=== PATIENT | male | born 1975 | race Caucasian/White ===

== ENCOUNTER 2016-08-30 10:03 | Day surgery (SDC) | payer OTHER ==
[2016-08-29 14:23] VITALS: BMI 41.8
[2016-08-30] MEDS ORDERED: PROPOFOL 20 ML ONE ×2 (12:55→13:12)
[2016-08-30] MEDS ORDERED: MIDAZOLAM HCL 2 MG/2 ML SINGLE DOSE VIAL ONE ×2 (12:55)
[2016-08-30] MEDS ORDERED: LIDOCAINE HCL/PF 2% SDV 5ML VIAL ONE (13:06)
[2016-08-30] MEDS ORDERED: ceFAZolin SODIUM 1 GM VIAL ONE (13:16)
[2016-08-30] MEDS ORDERED: ONDANSETRON 4 MG/2 ML VIAL ONE (13:21)
[2016-08-30] MEDS ORDERED: DEXAMETHASONE SOD PHOSPHATE 4 MG/1 ML VIAL ONE (13:21)
[2016-08-30] MEDS ORDERED: KETOROLAC TROMETHAMINE 30 MG/1 ML VIAL ONE (13:52)
[2016-08-30] MEDS ORDERED: PROMETHAZINE HCL 25 MG/1 ML VIAL IVPUSH PRN (13:59)
[2016-08-30] MEDS ORDERED: oxyCODONE HCL 5 MG TABLET PO PRN (13:59)
[2016-08-30] MEDS ORDERED: LACTATED RINGERS SOLUTION 1,000 ML IV SCH (14:00)
--- NOTE | 2016-08-30 14:42 | OP ---
DATE OF OPERATION: 08/30/2016 PREOPERATIVE DIAGNOSIS: Right knee medial meniscal tear. 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 SURGEON: Jeffrey Galindo MD ANESTHESIA: General. POSTOPERATIVE CONDITION: Stable. COMPLICATIONS: None. INDICATIONS: This is a pleasant gentleman who had been suffering from increasing medial knee pain. He is failing to improve with rest and antiinflammatories. Treatment options including nonoperative versus operative management were discussed. Operative risks were reviewed in detail, including bleeding, infection, neurovascular injury, need for further surgery, postoperative pain and stiffness, progression of osteoarthritis. We discussed medical risks such as heart attack, stroke, DVT, PE, and . The patient voiced understanding and elected to proceed. PROCEDURE: The patient was brought to the operating room where general anesthesia was administered. The right lower extremity was then prepped and draped in the usual sterile fashion. A preoperative dose of antibiotics was given and the usual timeout procedure was performed. At this point, the portal sites were marked out and then injected subcutaneously with 0.25% Marcaine. An 11 blade was used to create the lateral portal. The was now passed into the knee. Examination of the patellofemoral joint demonstrated Outerbridge grade 3/4 changes in the patellar surface. The trochlea had some mild . The arthroscope was then passed down to the notch where the ACL and PCL were visualized to be intact. The arthroscope was now passed into the medial compartment. Here, some superficial fraying was noted of the femoral cartilage. A medial portal was established under spinal needle localization. The medial meniscus was now probed. The superior surface of the meniscus was unremarkable. On the inferior surface in the posterior horn, there was a significant tear noted. Utilizing a combination of meniscal biters and shaver, this was debrided down to a stable base. The arthroscope was now passed back into the notch and then across into the lateral compartment. Here, again there was noted some superficial fraying of the cartilage but no meniscal lesion. The meniscus was probed and found to be stable. At this point, the arthroscope was passed back into the patellofemoral joint. Some of the loose chondral tissue was debrided gently. At this point, the excess fluid was withdrawn from the knee. The portals were sutured using 3-0 nylon. Sterile dressings were placed. The patient was extubated and transferred to the recovery room in stable condition. Jaquan BOTELLO/[id number]
[2016-08-30] MEDS ORDERED: ACETAMINOPHEN INJECTION 100 ML IVPB ONE (14:45)
[2016-08-30] MEDS ORDERED: ACETAMINOPHEN 1000 MG/100 ML VIAL (NON FORMULARY) IVPB ONE (14:56)
[2016-08-30 16:46] VITALS: PULSE 52; TEMP 97.8
[2016-08-30 16:49] VITALS: BP 110/67
== END 2016-08-30 16:20 | disposition home or self-care (01) ==
LOC: FASU 10:03
PROVIDERS: ATTEND Orthopaedic Surgery Sports Medicine
PROC: 0SBC4ZZ Excision of Right Knee Joint, Percutaneous Endoscopic Approach (ICD-10-PCS; principal; 2016-08-30 13:26)
DX: S83.241A Other tear of medial meniscus, current injury, right knee, initial encounter (principal); X58.XXXA Exposure to other specified factors, initial encounter; Y93.9 Activity, unspecified; Y92.9 Unspecified place or not applicable
CPT/HCPCS: 94760

== ENCOUNTER 2019-12-07 20:28 | Emergency (ER) | payer OTHER ==
--- NOTE | 2019-12-07 20:36 | PDOC ---
History of Present Illness - General Chief Complaint: Pain Stated Complaint: pain post tooth extraction Time Seen by Provider: 12/07/19 20:35 - History of Present Illness Initial Comments: This 44-year-old man, otherwise healthy, presents with 3-day history of pain in the area of tooth extraction (right upper first molar). Patient states that the tooth was extracted in early September of this year but 2 additional procedures were required to remove retained portions of the tooth since then. He states that 3 days ago he began to have pain in the area with pain being progressive over the last day. Tonight, he had pulsatile severe pain. No fever/chills, difficulty swallowing or facial swelling reported. Past History - Medical History Allergies/Adverse Reactions: Allergies Allergy/AdvReac Type Severity Reaction Status Date / Time No Known Drug Allergies Allergy Verified 12/07/19 20:30 Home Medications: Ambulatory Orders Alprazolam [Xanax] 1 mg PO PRN PRN 08/30/16 Amoxicillin - [Amoxicillin 500mg Capsule -] 500 mg PO TID #21 capsule 12/07/19 Asthma: Yes (SEASONAL ONLY) Cancer: No Cardiac Disorders: No CVA: No COPD: No CHF: No Dementia: No Diabetes: No GI Disorders: No Disorders: No HTN: No Hypercholesterolemia: No Liver Disease: No Psychiatric Problems: Yes (ANXIETY DISORDER) Seizures: No Thyroid Disease: No - Surgical History Abdominal Surgery: No Appendectomy: No Cardiac Surgery: No Cholecystectomy: No Lung Surgery: No Neurologic Surgery: No Orthopedic Surgery: Yes (LEFT ANKLE FUSION 2001) - Psycho-Social/Smoking History Smoking History: Current every day smoker Have you smoked in the past 12 months: Yes Number of Cigarettes Smoked Daily: 5 'Breaking Loose' booklet given: 07/02/14 Review of Systems - Review of Systems Able to Perform ROS?: Yes Comments:: 12 point review of systems is negative except for what is noted in the history of present illness *Physical Exam - Physical Exam GENERAL: Adult male, alert and oriented x3, mild distress secondary to tooth pain HEAD: Normal with no signs of trauma. EYES: PERRLA, EOMI, sclera anicteric, conjunctiva clear. ENT: Ears normal, nares patent, oropharynx clear without exudates. Moist mucous membranes. Mild edema and moderate tenderness around extraction site of right upper first molar; no drainage or bleeding noted EXTREMITIES: Normal range of motion, no edema. No clubbing or cyanosis. No erythema, or tenderness. NEUROLOGICAL: Cranial nerves II through XII grossly intact. Normal speech. No focal neurological deficits. SKIN: Warm, Dry, normal turgor, no rashes or lesions noted. Medical Decision Making - Medical Decision Making As noted above, this 44-year-old man with a history of having extraction of the right upper first molar several weeks ago, has had increased swelling, tenderness and pain in the area over the last 3 days. Exam confirms inflammation in the area. Will treat the patient for developing infection/abscess in the area of previous extraction. The patient states he has a sensitive stomach and would prefer not taking Augmentin. The patient will be given amoxicillin 500 mg by mouth with prescription for 500 mg 3 times a day for 1 week sent to pharmacy. You will take ibuprofen/naproxen/acetaminophen as needed for pain. He will call his dentist tomorrow a.m. and arrange for follow-up within the next 48 hours. If he has worsening pain, edema or fever prior to seeing his dentist, he should return to the ER Discharge - Discharge Information Problems reviewed: Yes Clinical Impression/Diagnosis: Dental abscess Condition: Stable Disposition: HOME - Additional Discharge Information Prescriptions: Amoxicillin - [Amoxicillin 500mg Capsule -] 500 mg PO TID #21 capsule - Follow up/Referral Referrals: Jayce Christianson MD [Primary Care Provider] - - Patient Discharge Instructions Patient Printed Discharge Instructions: Tooth Abscess Additional Instructions: Amoxicillin 500 mg 3 times a day until seen by your dentist Call your dentist in the morning and arrangefor follow-up within the next 48 hours Ibuprofen/naproxen/acetaminophen as needed for pain Return to ER if you have worsening pain, fever, facial swelling - Post Discharge Activity
[2019-12-07 20:39] VITALS: BP 123/75; PULSE 96; TEMP 98.1; BMI 43.4
[2019-12-07] MEDS ORDERED: AMOXICILLIN 500 MG CAPSULE (FP) PO ONE (20:48)
[2019-12-07] MEDS ORDERED: AMOXICILLIN 250 MG CAPSULE ONE (20:49)
== END 2019-12-07 20:58 | disposition home or self-care (01) ==
LOC: FER 20:28
DX: K08.89 Other specified disorders of teeth and supporting structures (principal)
CPT/HCPCS: 99283-25

== ENCOUNTER 2020-06-27 10:59 | Emergency (ER) | payer OTHER | END 2020-06-27 11:44 | disposition home or self-care (01) | LOC: JVIRT 10:59 | DX: R51.9 Headache, unspecified (principal); Z11.52 Encounter for screening for COVID-19 | CPT/HCPCS: C9803; G2251-GT; U0003 ==

== ENCOUNTER 2021-08-21 08:10 | Emergency (ER) | payer OTHER ==
[2021-08-21 08:31] VITALS: BP 130/82; TEMP 99.2; BMI 47.5
[2021-08-21 09:42] LABS: HEMATOCRIT 52.3 % (35.4-49); HEMOGLOBIN 18.1 G/dL (11.7-16.9); MCH 31.6 pg (25.7-33.7); MCHC 34.6 g/dl (32.0-35.9); MEAN CELL VOLUME 91.2 fl (80-96); MEAN PLT VOLUME 7.5 fl (7.5-11.1); PLATELET COUNT 186.2 10^3/uL (134-434); RBC 5.73 10^6/uL (4.00-5.60); RDW 14.2 % (11.9-15.9); WHITE BLOOD COUNT 7.9 10^3/uL (4.0-10.8)
[2021-08-21 11:13] LABS: CALCIUM 9.4 mg/dL (8.5-10.1)
[2021-08-21 11:14] LABS: BLOOD UREA NITROGEN 18.5 mg/dL (7-18)
[2021-08-21 11:17] LABS: CREATININE 0.9 mg/dL (0.55-1.3)
[2021-08-21 11:18] LABS: BILIRUBIN,TOTAL 1.1 mg/dL (0.2-1)
[2021-08-21 11:23] VITALS: PULSE 90
[2021-08-21 12:48] LABS: PLATELET ESTIMATE ADEQUATE
== END 2021-08-21 11:40 | disposition home or self-care (01) ==
LOC: FER 08:10
DX: R10.11 Right upper quadrant pain (principal); K76.0 Fatty (change of) liver, not elsewhere classified; R94.5 Abnormal results of liver function studies
CPT/HCPCS: 36415; 71046-TC-FY; 74176-TC; 80053; 85025; 99284-25

== ENCOUNTER 2023-07-11 08:52 | Emergency (ER) | payer OTHER ==
[2023-07-11 09:45] VITALS: RESP 18; TEMP 99.2; BMI 46.0
[2023-07-11] MEDS ORDERED: ACETAMINOPHEN 325 MG TABLET (FP) ONE (09:47)
[2023-07-11] MEDS: ACETAMINOPHEN 325 MG TABLET (FP) PO ONE (09:49)
[2023-07-11 09:55] LABS: URINE MUCUS MANY
[2023-07-11 09:57] LABS: HEMATOCRIT 52.2 % (35.4-49); HEMOGLOBIN 17.3 G/dL (11.7-16.9); MCH 31.1 pg (25.7-33.7); MCHC 33.2 g/dl (32.0-35.9); MEAN CELL VOLUME 93.6 fl (80-96); MEAN PLT VOLUME 7.9 fl (7.5-11.1); PLATELET COUNT 202.9 10^3/uL (134-434); RBC 5.58 10^6/uL (4.00-5.60); RDW 13.5 % (11.9-15.9); WHITE BLOOD COUNT 12.6 10^3/uL (4.0-10.8)
[2023-07-11 10:03] LABS: PLATELET ESTIMATE ADEQUATE
[2023-07-11 10:05] LABS: ALBUMIN 4.7 g/dl (3.4-5.0); BILIRUBIN,TOTAL 1.4 mg/dl (0.2-1); CALCIUM 9.6 mg/dl (8.5-10.1); CREATININE 0.9 mg/dl (0.6-1.3); POTASSIUM 3.9 mmol/L (3.5-5.1); TOT PROT 7.3 g/dl (6.4-8.2)
[2023-07-11] MEDS ORDERED: AMOX TR/POT CLAV 875MG/125MG TABLETS (FP) ONE (12:25)
[2023-07-11] MEDS: AMOX TR/POT CLAV 875MG/125MG TABLETS (FP) PO ONE (12:28)
[2023-07-11 12:30] VITALS: BP 122/88; PULSE 88
== END 2023-07-11 12:49 | disposition home or self-care (01) ==
LOC: FER 08:52
DX: R10.30 Lower abdominal pain, unspecified (principal); K57.92 Diverticulitis of intestine, part unspecified, without perforation or abscess without bleeding
CPT/HCPCS: 36415; 74177-TC; 80053; 81003; 81015; 85025; 87086; 99285-25; Q9967

== ENCOUNTER 2023-10-28 07:31 | Day surgery (SDC) | payer OTHER ==
[2023-10-23 11:51] VITALS: BMI 44.1
[2023-10-28 09:04] VITALS: RESP 18; TEMP 97.2
[2023-10-28 09:29] VITALS: BP 122/86; PULSE 84
== END 2023-10-28 09:29 | disposition home or self-care (01) ==
LOC: FASU-ENDO 07:31
PROVIDERS: ATTEND Internal Medicine Gastroenterology
PROC: 0DBL8ZX Excision of Transverse Colon, Via Natural or Artificial Opening Endoscopic, Diagnostic (ICD-10-PCS; 2023-10-28)
PROC: 0DBN8ZX Excision of Sigmoid Colon, Via Natural or Artificial Opening Endoscopic, Diagnostic (ICD-10-PCS; principal; 2023-10-28 08:43)
DX: Z12.11 Encounter for screening for malignant neoplasm of colon (principal); D12.3 Benign neoplasm of transverse colon; D12.5 Benign neoplasm of sigmoid colon
CPT/HCPCS: 88305-TC